=== PATIENT | female | born 1930 | race Caucasian/White ===

== ENCOUNTER 2018-11-13 09:41 | Day surgery (SDC) | payer MEDICARE ==
[~2018-11-13] VITALS: Ht 160 cm; Wt 59.1 kg
[2018-11-13 10:42] VITALS: BP 154/55
[2018-11-13] MEDS ORDERED: SODIUM CHLORIDE 0.9% 1,000 ML IV SCH ×2 (11:00→12:15)
[2018-11-13] MEDS ORDERED: METH500C3 PO (11:09)
[2018-11-13] MEDS ORDERED: DONE10TA7 PO (11:09)
[2018-11-13] MEDS ORDERED: FLUO20CA8 PO (11:09)
[2018-11-13] MEDS ORDERED: RIVA20TA PO (11:09)
[2018-11-13] MEDS ORDERED: MEMA10TA PO (11:09)
[2018-11-13] MEDS ORDERED: ROSU5TAB11 PO (11:09)
[2018-11-13] MEDS ORDERED: ASPI-496 PO (11:09)
[2018-11-13] MEDS ORDERED: MELA10TA PO (11:09)
[2018-11-13] MEDS ORDERED: FLAX10004 PO-COUM (11:09)
[2018-11-13] MEDS ORDERED: CALC-670 PO (11:09)
[2018-11-13] MEDS ORDERED: OMEP40CA6 PO (11:09)
[2018-11-13] MEDS ORDERED: METO25TA35 PO (11:09)
[2018-11-13] MEDS ORDERED: LUTE40CA PO (11:09)
[2018-11-13] MEDS ORDERED: LISI-170 PO (11:09)
[2018-11-13] MEDS ORDERED: CYAN10005 PO (11:09)
[2018-11-13] MEDS ORDERED: LATA7.5D OP (11:09)
[2018-11-13] MEDS ORDERED: LEVO75TA5 PO (11:09)
[2018-11-13] MEDS ORDERED: UBID100C24 PO (11:09)
[2018-11-13] MEDS ORDERED: METF500T17 PO (11:09)
[2018-11-13] MEDS ORDERED: CHOL2000 PO (11:09)
[2018-11-13] MEDS ORDERED: [UNRECOGNIZED DRUG - CODE] PO (11:09)
[2018-11-13] MEDS ORDERED: GABA600T7 PO (11:09)
[2018-11-13] MEDS ORDERED: BIVALIRUDIN 250 MG ONE (11:38)
[2018-11-13] MEDS ORDERED: NITROGLYCERIN 5 MG/ML, 10ML ONE (11:38)
[2018-11-13] MEDS ORDERED: TICAGRELOR 90 MG TABLET ONE (11:38)
[2018-11-13] MEDS ORDERED: HEPARIN 1,000 UNITS/ML, 10ML ONE (11:38)
[2018-11-13] MEDS ORDERED: VERAPAMIL 2.5 MG/ML, 2ML ONE (11:38)
[2018-11-13] MEDS ORDERED: MIDAZOLAM 1 MG/ML, 5ML ONE (11:38)
[2018-11-13] MEDS ORDERED: FENTANYL PF 100 MCG/2ML ONE (11:38)
[2018-11-13] MEDS ORDERED: LIDOCAINE 2%, 20ML ONE (11:39)
== END 2018-11-13 15:15 | disposition home or self-care (01) ==
LOC: CACL 09:41
PROVIDERS: ATTEND Internal Medicine Cardiovascular Disease
DX: I25.10 Atherosclerotic heart disease of native coronary artery without angina pectoris (principal); I35.0 Nonrheumatic aortic (valve) stenosis; I11.0 Hypertensive heart disease with heart failure; I50.33 Acute on chronic diastolic (congestive) heart failure; E11.9 Type 2 diabetes mellitus without complications; E78.5 Hyperlipidemia, unspecified; I48.91 Unspecified atrial fibrillation; Z88.1 Allergy status to other antibiotic agents; Z88.8 Allergy status to other drugs, medicaments and biological substances; Z79.84 Long term (current) use of oral hypoglycemic drugs
CPT/HCPCS: 93454; 99156; C1769; C1894; J1644; J2250; J3010; Q9967; J0583

== ENCOUNTER 2018-11-19 11:28 | Outpatient (CLI) | payer MEDICARE ==
[~2018-11-19 11:28] MED LIST: ASPI-496 PO; CALC-670 PO; CHOL2000 PO; CYAN10005 PO; DONE10TA7 PO; FLAX10004 PO-COUM; FLUO20CA8 PO; GABA600T7 PO; LATA7.5D OP; LEVO75TA5 PO; LISI-170 PO; LUTE40CA PO; MELA10TA PO; MEMA10TA PO; METF500T17 PO; METH500C3 PO; METO25TA35 PO; OMEP40CA6 PO; RIVA20TA PO; ROSU5TAB11 PO; UBID100C24 PO; [UNRECOGNIZED DRUG - CODE] PO
[2018-11-19] MEDS ORDERED: OMNIPAQUE 350 MG/ML, 150 ML BOTTLE ONE (13:57)
[2018-12-02] MEDS ORDERED: ACET1TAB64 PO (10:13)
== END 2018-11-19 23:59 | disposition home or self-care (01) ==
LOC: CVU 11:28 → RAD 23:59
PROVIDERS: ATTEND Internal Medicine Cardiovascular Disease
DX: I65.23 Occlusion and stenosis of bilateral carotid arteries (principal); I35.0 Nonrheumatic aortic (valve) stenosis; K57.30 Diverticulosis of large intestine without perforation or abscess without bleeding; I70.0 Atherosclerosis of aorta; K44.9 Diaphragmatic hernia without obstruction or gangrene; M41.86 Other forms of scoliosis, lumbar region; I10 Essential (primary) hypertension; E78.5 Hyperlipidemia, unspecified
CPT/HCPCS: 71275; 74174; 93880; 94010; 94726; 94729; Q9967